=== PATIENT | male | born 1935 | race Caucasian/White ===

== ENCOUNTER → 2017-06-10 | Day surgery (SDC) | payer MEDICARE ==
[~2017-06-10] VITALS: Ht 182.9 cm; Wt 99.8 kg
[~2017-06-10] MED LIST: ASPI-628 PO; ASPI-973 PO; SIMV5TAB7 PO; Sodium Chloride LOK Flush 10 mL Syringe IV PRN; fentaNYL-PF 50 mCg/mL 2 mL Inj IVPUSH PRN
[2017-06-10 12:49] VITALS: BP 167/84; PULSE 60; RESP 16; O2SAT 97
[2017-06-10] MEDS: 0.9% Sodium Chloride 1,000 ML IV PRN ×4 (12:57→13:53)
[2017-06-10 14:05] VITALS: BP 157/73; PULSE 50; RESP 12; O2SAT 95
[2017-06-10 14:19] VITALS: BP 162/71; PULSE 47; RESP 12; O2SAT 95
[2017-06-10 14:22] VITALS: BP 165/72; PULSE 54; RESP 14; O2SAT 100
--- NOTE | 2017-06-10 23:47 | ENDO ---
[address] [address] ENDOSCOPY PROCEDURE PATIENT: MEHRDAD WYNNE : 1935 MR#: [id number] ADMIT: 06/10/2017 JOB ID: [id number] DATE OF PROCEDURE: 06/10/2017 PRIMARY PROVIDER: Yomi Mcpherson MD. PROCEDURE: Colonoscopy with hot snare polypectomy and cold snare polypectomy. INDICATIONS: An 81-year-old male with a history of colon polyps. EQUIPMENT: [employer] [employer] ([employer]: [place])-Digistrive80AL. SEDATION: 1. Versed 4 mg. 2. Fentanyl 125 mcg. BOWEL PREPARATION: Fair at best. There were several pools of turbid stool and liquid debris that could not be fully cleansed for optimal mucosal evaluation. PROCEDURE INFORMATION: After the risks and benefits were explained, written and verbal informed consent was obtained. The patient was brought into the endoscopy suite and placed into the left lateral decubitus position. Sedation was achieved using the above-stated medications with the addition of oxygen via nasal cannula. The scope was introduced into the rectum and advanced under direct visualization to the cecum as identified by the appendiceal orifice following a digital rectal exam which revealed the presence of some mild internal hemorrhoids. The scope was advanced to the cecum as identified by the appendiceal orifice and ileocecal valve. The scope was slowly withdrawn to carefully examine the mucosa for any defects or lesions. Multiple direct views were made through the dentate line for exclusion of pathology. The colon was decompressed. The scope was removed from the patient who tolerated the procedure well. FINDINGS: There were 12 polyps seen and removed today. One of these came by way of cold snare and was not retrieved. A second one quite small came by way of hot snare as well, but was additionally not retrieved. The other 10 were resected and retrieved and labeled as "colon polyps." These came from throughout the colon starting in ascending going all the way back to rectosigmoid. As a consequence of all of these polyps, procedure time was prolonged and 22 modifier is requested. ENDOSCOPIC DIAGNOSES: Multiple colon polyps. RECOMMENDATIONS: 1. Await histopathology. 2. If there are adenomatous features again identified in these specimens then I would recommend a repeat colonoscopy with an extra day of liquids in one year.
--- NOTE | 2017-06-12 13:12 | PATH ---
SURGICAL PATHOLOGY Attending Physician:Julee Arriaza CASE STATUS: Signed Out PATIENT NAME: MEHRDAD WYNNE PID: [id number] : 1935 DATE COLLECTED:06/10/2017 21:45 SPECIMEN: Colon, Polyp CLINICAL HISTORY: 1). 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 Tubular adenoma (9 of 14 pieces). Serrated polyp, favor hyperplastic polyp (2 of 14 pieces). ICD10: D12.6 NOTE: As part of routine quality intern, Dr. Fofana has reviewed this case and agrees with the interpretation of conventional low-grade dysplasia rising in a sessile serrated adenoma. GROSS DESCRIPTION: The specimen is received in one formalin filled container labeled with the patient's name, sublabeled "colon polyps" and consists of multiple portions of tissue which aggregate to 1.5 x 0.5 x 0.3 CM. The specimen is entirely submitted in one cassette. 06/10/2017DC ICD-9 CODES: CPT CODES: 1: 09962 Electronically Signed Out Daniele Red MD, Ph.D. [facility] Pathology [facility] [address], [place] [address] Technical component performed at [facility], [facility] [address], [address]
== END | disposition home or self-care (01) ==
LOC: END 00:30
PROVIDERS: ATTEND Internal Medicine Gastroenterology
DX: Z12.11 Encounter for screening for malignant neoplasm of colon (principal); D12.6 Benign neoplasm of colon, unspecified; Z86.010 Personal history of colon polyps; E78.2 Mixed hyperlipidemia; N40.0 Benign prostatic hyperplasia without lower urinary tract symptoms; Z86.73 Personal history of transient ischemic attack (TIA), and cerebral infarction without residual deficits; Z87.891 Personal history of nicotine dependence; Z79.82 Long term (current) use of aspirin
CPT/HCPCS: 45385; 99153; G0500; J2250; J3010; J7030